=== PATIENT | female | born 1970 | race Caucasian/White ===

== ENCOUNTER 2018-04-17 12:06 | Inpatient (IN) ==
[2018-04-17] MEDS ORDERED: Acetaminophen 325 MG TABLET PO PRN (19:42)
--- NOTE | 2018-04-17 19:52 | OB/GYN History & Physical ---
Date of Encounter: 04/17/18 Time of Encounter: 19:50 Assessment and Plan (1) Menorrhagia with irregular cycle Current visit: Yes Status: Acute (2) Dysmenorrhea Current visit: Yes Status: Acute (3) Enlarged uterus Current visit: Yes Status: Acute (4) Fibroid uterus Current visit: Yes Status: Acute Patient is scheduled for laprascopic assisted vaginal hysterectomy Qualifiers: Uterine leiomyoma location: intramural and subserous Qualified Code(s): D25.1 - Intramural leiomyoma of uterus; D25.2 - Subserosal leiomyoma of uterus (5) Blood loss anemia Current visit: Yes Status: Acute She will receive 2 units of blood prior to surgery History of Present Illness HPI: Ms. Pearl is a 47 year old female who presented for admission for blood transfusion. Patient is scheduled for laparoscopic-assisted vaginal hysterectomy in the morning however at the time of her preadmission testing patient hemoglobin is 7.8 patient has a history of an enlarged fibroid uterus and continued to bleed heavy after that test was drawn. Case was discussed with anesthesia the recommend patient did admitted the night before for 2 units of blood to stabilize for the surgery. Patient was placed on megestrol 40 mg twice a day and it has slowed down the bleeding she does have an severe cramping now associated with that. Patient was originally referred to the office for heavy painful periods and on examination she was noted to have an enlarged uterus. Ultrasound was performed and patient showing a uterus of approximately 9 cm however she had a large 7 cm subserosal fibroid coming off the right side. We did do an endometrial biopsy that was benign she was scheduled for the left scopic assisted vaginal hysterectomy to control her bleeding and pain. Past Med Surg Social Fam HX - Past Medical History Source: patient, old records reviewed Medical history: cancer (skin face) Additional medical history: skin cancer- face Psychiatric history: no psych history - Past Surgical History Surgical History: appendectomy, other (Marco fundopliation) Additional surgical history: marco fundoplication Medications and Allergies Allergy/AdvReac Type Severity Reaction Status Date / Time No Known Allergies Allergy Unverified 04/12/18 08:20 Review of System OB All systems PM: reviewed and no additional remarkable complaints except as stated - Menstruation Menstruation: period heavy Exam - Vital Signs Vital signs: Initial Vital Signs Temp Pulse Resp BP Pulse Ox 98.3 F 104 16 136/83 100 04/17/18 19:05 04/17/18 19:05 04/17/18 19:05 04/17/18 19:05 04/17/18 19:05 - Constitutional Constitutional: well developed, well nourished, average body habitus, mild distress - HEENT HEENT: EOMI, PERRL, Mucus Membranes Moist - Neck Neck exam: full ROM - Lungs Respiratory exam: CTAB - Cardiovascular Cardiovascular exam: RRR - Abdomen Abdomen: Present: bowel sounds normal Results All other labs normal.
[2018-04-17] MEDS ORDERED: 0.9 % Sodium Chloride 500 ML ONE (20:16)
[2018-04-17 20:17] LABS: Basophils # 0.1 K/mcL (0.0-0.2); Basophils % 1.3 %; Eosinophils # 0.2 K/mcL (0.0-0.6); Eosinophils % 3.6 %; Hemoglobin 7.2 g/dL (11.5-15.4); Immature Granulocytes % 0.2 % (0-4); Lymphocytes # 1.5 K/mcL (0.6-4.6); Lymphocytes % 23.3 %; Mean Corpuscular HGB Conc 27.7 g/dL (31.6-35.5); Mean Corpuscular Hemoglobin 17.7 pg (28.0-33.3); Mean Corpuscular Volume 63.9 fL (83.0-100.0); Mean Platelet Volume 9.3 fL (9.4-12.4); Monocytes # 0.8 K/mcL (0.0-1.3); Monocytes % 12.3 %; Platelet Count 453 K/mcL (140-400); Red Blood Count 4.07 M/mcL (3.82-4.97); Red Cell Distribution Width 15.9 % (11.5-14.5); Segmented Neutrophils % 59.3 %
[2018-04-17 20:18] LABS: Neutrophils # 3.7 K/mcL (1.6-8.9)
[2018-04-17 20:44] LABS: Hypochromasia Present (Not Present); Platelet Estimate Increased (Normal)
[2018-04-17] MEDS: Ringers Solution, Lactated 1,000 ML IVC SCH (20:55)
[2018-04-18 09:10] LABS: Basophils # 0.1 K/mcL (0.0-0.2); Basophils % 1.4 %; Eosinophils # 0.3 K/mcL (0.0-0.6); Hematocrit 29.9 % (35.3-44.9); Immature Granulocytes % 0.2 % (0-4); Lymphocytes # 1.4 K/mcL (0.6-4.6); Lymphocytes % 24.2 %; Mean Corpuscular HGB Conc 29.1 g/dL (31.6-35.5); Mean Corpuscular Hemoglobin 19.6 pg (28.0-33.3); Mean Corpuscular Volume 67.5 fL (83.0-100.0); Monocytes # 0.7 K/mcL (0.0-1.3); Monocytes % 12.6 %; Neutrophils # 3.3 K/mcL (1.6-8.9); Platelet Count 392 K/mcL (140-400); Red Blood Count 4.43 M/mcL (3.82-4.97); Red Cell Distribution Width 19.7 % (11.5-14.5); Segmented Neutrophils % 56.6 %
[2018-04-18 09:19] LABS: Hemoglobin 8.7 g/dL (11.5-15.4)
[2018-04-18 09:32] LABS: Anisocytosis 1+ (Not Present); Hypochromasia Present (Not Present); Microcytosis Present (Not Present); Platelet Estimate Normal (Normal)
[2018-04-18] MEDS: Ringers Solution, Lactated 1,000 ML IVC SCH (10:02)
[2018-04-18] MEDS ORDERED: Dexamethasone 4 MG/ML VIAL ONE (11:06)
[2018-04-18] MEDS ORDERED: Lidocaine -MPF 2% 2 ML VIAL ONE (11:06)
[2018-04-18] MEDS ORDERED: Ondansetron 4 MG/2 ML VIAL ONE (11:06)
[2018-04-18] MEDS ORDERED: *HR* Propofol 200 MG/20 ML VIAL IVP ONE (11:06)
--- NOTE | 2018-04-18 11:11 | Anesthesia Evaluation PreOp ---
Date of Encounter: 04/18/18 Time of Encounter: 11:11 - Past History Planned Operation: LAVH re: Anemia, Menorrhagia/Dysmenorrhea Cardiac History: Denies any Significant Hx Pulmonary History: Denies Any Significant HX KNOT BORER History: Denies Any Significant HX Other Medical History: Denies Any Significant HX, Other (Admitted 04/17/2018 for RBC transfusion. S/p 2units on day of surgery 04/18/2018. Hx Skin Ca [face]) Anesthesia History: No Prior Anesthetic Complications, Past Anesthesia (Appy, Kristopher) : No Test: Negative Medications and Allergies Allergy/AdvReac Type Severity Reaction Status Date / Time ampicillin Allergy Hives Verified 04/17/18 21:12 morphine Allergy Anaphylaxis Verified 04/17/18 21:12 - Meds/Allergy Pre-op Review Medications Reviewed: Yes Allergies Reviewed: Yes (MORPHINE => ANAPHYLAXIS) Beta Blockers on Current Med List: No Anesthesia Results - Labs 04/18/18 08:50 Laboratory Results Laboratory Tests 04/12/18 04/18/18 08:35 08:50 WBC 5.8 Hgb 8.7 L D Hct 29.9 L Plt Count 392 Serum , Qual Negative Anesthesia Exam Vital Signs Temp Pulse Resp BP Pulse Ox 04/18/18 07:36 97.5 F L 68 18 108/67 97 04/18/18 02:50 98.6 F 83 18 102/60 97 04/18/18 00:41 98.0 F 92 18 105/63 100 04/18/18 00:25 98.5 F 90 18 118/71 99 04/17/18 23:55 97.7 F 87 16 126/65 100 04/17/18 21:58 98.5 F 89 18 144/83 100 04/17/18 21:30 98.6 F 92 18 149/77 100 04/17/18 19:05 98.3 F 104 16 136/83 100 Intake and Output 04/17/18 04/18/18 04/18/18 23:59 07:59 15:59 Intake Total 1200 / 1200 700 / 700 1000 / 1000 Balance 1200 / 1200 700 / 700 1000 / 1000 Intake: IV Fluids 1000 / 1000 Lactated Ringers 1,000 ML @ 125 1000 / 1000 mls/hr IVC .Q8H [facility] Rx#: [id number] Oral 500 / 500 350 / 350 Blood Product 700 / 700 350 / 350 Rbcs Leuko Poor As-1 Unit 700 / 700 [id number] Rbcs Leuko Poor As-1 Unit 350 / 350 [id number] Other: # Voids 1 1 Weight 81.5 kg Height: 5'7" Weight: 179# bmi = 28 NPO (# of Hours): mnoC - HEENT Pupil (Motor): Pupils equal, EOMI Mallampati: III Teeth: Normal Oral Opening: Greater than 3 - KNOT BORER LOC: Oriented KNOT BORER Motor: Normal RUE, Normal LUE, Normal RLE, Normal LLE, Normal Face KNOT BORER Sensory: Normal: RUE, LUE, RLE, LLE, Face - Cardiac Rhythm: Regular Murmur: None - Pulmonary Breath Sounds: bilateral Clear Respiratory Effort: Symmetrical Anesthesia Assess/Plan ASA Score: 2 Level of consciousness: Cooperative, Oriented, Tranquil Anesthetic Plan: General Monitoring Plan: Standard Monitors Recovery Plan: PACU Anes Supervising Prov Stmt: Pt seen/evaluated, R&B Discussed, questions answered and consent obtained. Raza Maxwell MD
[2018-04-18] MEDS ORDERED: *HR* FentaNYL (PF) 100 MCG/2 ML VIAL ONE ×2 (11:32→12:46)
[2018-04-18] MEDS ORDERED: *HR* Midazolam HCl 2 MG/2 ML VIAL ONE (11:33)
[2018-04-18] MEDS ORDERED: Lidocaine -MPF 4% 5 ML AMPUL ONE (11:34)
[2018-04-18] MEDS ORDERED: MetroNIDAZOLE 500 MG/100 ML 500 MG/100 ML BAG IVPB ONE ×2 (11:36→12:14)
[2018-04-18] MEDS ORDERED: *HR* Belladonna Alkaloids/Opium 30 MG RECTAL SUPPOSITORY RC ONE ×2 (11:45→14:09)
[2018-04-18] MEDS ORDERED: *HR* Oxytocin 10 UNIT/ML VIAL IM ONE (11:46)
[2018-04-18] MEDS ORDERED: Bupivacaine/EPI 1:200k 0.25%PF 10 ML VIAL INFILT ONE (11:46)
[2018-04-18] MEDS ORDERED: Scopolamine Patch 1.5 MG PATCH.TD72 ONE (11:47)
[2018-04-18] MEDS ORDERED: Acetaminophen IV 1,000 MG/100 ML INFUS..BTL ONE (11:47)
[2018-04-18] MEDS ORDERED: Famotidine 20 MG/2 ML VIAL ONE (11:47)
--- NOTE | 2018-04-18 11:47 | History & Physical Report ---
Date of Encounter: 04/18/18 Time of Encounter: 11:46 24 Hour HP Update - Instructions Instructions: If the History and Physical is less than 30 days old and was completed prior to A.M. admission and or procedure and has NOT been updated on calendar day of procedure please complete this update prior to performing procedure. - Update Patient reports changes in Medical Condition: Yes Changes in examination, assessment, or condition: Yes Changes in Medication: No Preop tests/diagnostics Reviewed: Yes Surgery Remains Indicated: Yes Consent for Planned Operative Procedure(s) Verified: Yes Review of Patient reveals the following changes:: Patient's hemoglobin at the time of her preadmission testing was 7.8 she continued to bleed. Patient come in yesterday hemoglobin was 7.2 she was transfused 2 units overnight in preparation for surgery today bleeding was finally stopped with megestrol - Pre-Operative Checklist Preoperative Checklist Indicated: Yes Prophylactic Antibiotic Ordered: Yes Home Medications Include Beta Lindsey: No Beta Lindsey Taken Today (Day of Surgery): No Beta Lindsey Taken Yesterday (Day Prior to Surgery): No Is VTE Prophylaxis Indicated?: Yes
[2018-04-18] MEDS ORDERED: *HR* Vasopressin 20 UNIT/ML VIAL ONE (11:49)
[2018-04-18] MEDS ORDERED: Pregabalin 75 MG CAPSULE ONE (11:51)
[2018-04-18] MEDS ORDERED: Vancomycin 1,000 MG VIAL ONE (12:14)
[2018-04-18] MEDS ORDERED: Neostigmine Methylsulfate 3 MG/3 ML SYRINGE ONE (13:37)
[2018-04-18] MEDS ORDERED: *HR* HYDROMORPHONE 2 MG/ML VIAL ONE (13:42)
--- NOTE | 2018-04-18 14:14 | OB/GYN Procedure Note ---
Hysterectomy - Diagnosis Date of procedure: 04/18/18 Hysterectomy pre-op: other (Menorrhagia, dysmenorrhea, enlarged fibroid uterus, blood loss anemia) Post-op diagnosis: same - Procedure Hysterectomy procedure: lap assisted vaginal hysterectomy, bilateral salpingectomy Surgeon: Edward Yuan Was there an transition assistant present: Yes Presto Log Operator: Ladonna Fink Anesthesia Type: General Estimated blood loss (cc): 200 Complications: none Specimens: uterus, cervix, right fallopian tube, left fallopian tube Findings: Enlarged fibroid uterus that had to be removed in pieces normal ovaries bilaterally Disposition: PACU Narrative: Patient is a 47 year old female who presented for laparoscopic-assisted vaginal hysterectomy secondary to menorrhagia dysmenorrhea with an ultrasound showing a large fibroid uterus. She presents our office complaining of very heavy painful periods passing large clots she had an ultrasound which showed a 9 cm uterus with a 7 cm fundal fibroid with schedule patient for a laparoscopic assisted vaginal hysterectomy at the time of her preoperative blood work she was noted have a hemoglobin of 7.8. She was still actively bleeding we decided to bring her in the night before for transfusion. She was 7.2 on admission after 2 units of blood she went up to 8.7. Patient was advised if her hemoglobin drops down to 7 again we would discuss another transfusion. Procedure: Patient was taken to the operating room where general anesthesia was found be adequate. She was placed in the dorsal lithotomy position prepped and draped in usual fashion. A weighted speculum was placed in the vagina the anterior lip of the cervix was grasped with a single-tooth tenaculum and a uterine manipulator was inserted. Speculum was removed and attention was then turned to the abdomen. A small infraumbilical incision was made with a scalpel and a 5 mm blunt trocar was inserted under direct visualization. A pneumoperitoneum was obtained with 4 L of CO2 gas. Patient was noted to have an enlarged uterus filling the pelvis. 2 more incisions were made in the right and left flank and 2 more 5 mm trochars were inserted under direct visualization. Pelvis was visualized uterus is difficult to manipulate due to the size and weight of the uterus but we were able to visualize the pedicles bilaterally and we decided to proceed on laparoscopically. The round ligaments were then transected with the LigaSure at the anterior leaf of the broad ligament was opened up anteriorly. The fallopian tubes were then removed off the ovaries to the mesosalpinx and the ovary was from the uterus to the utero-ovarian ligament. We skeletonized the broad ligaments identified uterine vessels these were then cauterized and transected worked her way down as low as we could but due to some poor visualization once we had the uterine vessels transected it was decided we would finish the case from below. Attention was then turned back to the vagina speculum was reinserted and the vaginal mucosa was infiltrated with Pitressin a scalpel was used to incise from the cervical stump the vaginal mucosa was dissected off the cervix and into the anterior and posterior repair. 2 curved Claude clamps were placed across the uterosacral cardinal complex these were then transected and suture ligated with 0 Vicryl. It required 2 more bites on each side for the specimen was free and removed these pedicles were also suture ligated with 0 Vicryl we attempted to remove the uterus unfortunately due to the size of it it would not fit out the vagina was decided this time with morcellated out until it would fit using a scalpel and scissors we transected the midsection of the uterus until it. And we could remove the fundal portion. Once this was removed pelvis was visualized good hemostasis noted the vaginal cuff was then closed using an 0 Vicryl in a running locking stitch from both corners to midline incorporating the parietal peritoneum anteriorly and pos teriorly good hemostasis was noted patient did have some lacerations within the vagina from is trying to remove it these were repaired with a 3-0 Vicryl in a running stitch. Hemostasis again was noted attention was then turned back to the abdomen. Pneumoperitoneum was expanded the pelvis was copiously irrigated with no active bleeding noticed was applied to the symphysis and the procedure was terminated the laparoscope was removed, pneumoperitoneum released, all by the removal of the trochars the 3 skin incisions were closed using a 4-0 Vicryl in a subcuticular manner. All needles lap sponge counts were correct 3 she did receive preoperative antibiotics and a B&O suppository at the end of the case. She was taken to the recovery room in stable condition.
--- NOTE | 2018-04-18 14:50 | Anesthesia Evaluation Post Op ---
Date of Encounter: 04/18/18 Time of Encounter: 14:50 - Vital Signs Vital Signs: Vital Signs/O2 Sat, Most Current Temp Pulse Resp BP Pulse Ox 99 F 90 14 122/70 94 04/18/18 14:44 04/18/18 14:44 04/18/18 14:44 04/18/18 14:44 04/18/18 14:44 - Lungs Lungs: Clear Ascult./Percussion - Airway Airway: Non-obstructed - Cardiovascular Regular Rate - Mental Status Mental Status: Asleep with brisk response to light stimulation - Pain Pain Scale: 0 Pain Scale used: Numeric (1 - 10) - Nausea Vomiting Nausea Vomiting: Not Present - Hydration Hydration: NPO, Pedro catheter - Discharge PostOp Status: Transfer Patient to floor
[2018-04-18] MEDS ORDERED: Ondansetron 4 MG/2 ML VIAL IVP PRN (14:59)
[2018-04-18] MEDS ORDERED: Ringers Solution, Lactated 1,000 ML IVC SCH (14:59)
[2018-04-18] MEDS ORDERED: Naloxone 0.4 MG/ML INJ IVP PRN (14:59)
[2018-04-18] MEDS ORDERED: Ketorolac 30 MG/ML VIAL IVP PRN (14:59)
[2018-04-18] MEDS ORDERED: *HR* OxyCODONE/APAP 10/325 TABLET PO PRN (14:59)
--- NOTE | 2018-04-18 15:47 | Discharge Summary ---
Date of Encounter: 04/19/18 Time of Encounter: 07:58 - Discharge Diagnosis (1) Menorrhagia with irregular cycle Priority: Secondary Status: Acute (2) Dysmenorrhea Priority: Secondary Status: Acute (3) Enlarged uterus Priority: Secondary Status: Acute (4) Fibroid uterus Priority: Secondary Status: Acute Qualifiers: Uterine leiomyoma location: intramural and subserous Qualified Code(s): D25.1 - Intramural leiomyoma of uterus; D25.2 - Subserosal leiomyoma of uterus (5) Blood loss anemia Priority: Primary Status: Acute (6) Status post laparoscopic assisted vaginal hysterectomy (LAVH) Priority: Primary Status: Acute - Discharge Medications Prescriptions: OxyCODONE/APAP 5/325 [Percocet 5/325 MG] 1 each PO Q6HR PRN 7 Days #28 tablet PRN Reason: Moderate Pain Ferrous Sulfate 325 mg PO BIDWM #60 tablet Home Medications: Ferrous Sulfate 325 mg PO BIDWM #60 tablet 04/19/18 [Rx] OxyCODONE/APAP 5/325 [Percocet 5/325 MG] 1 each PO Q6HR PRN 7 Days #28 tablet 04/19/18 [Rx] Allergies/Adverse Reactions: Allergy/AdvReac Type Severity Reaction Status Date / Time ampicillin Allergy Hives Verified 04/17/18 21:12 morphine Allergy Anaphylaxis Verified 04/18/18 15:42 Data Procedures and tests throughout hospitalization: Laboratory Tests 04/17/18 04/17/18 04/18/18 19:36 19:42 08:50 WBC 6.3 5.8 RBC 4.07 4.43 Hgb 7.2 L 8.7 L D Hct 26.0 L 29.9 L MCV 63.9 L 67.5 L MCH 17.7 L 19.6 L MCHC 27.7 L 29.1 L RDW 15.9 H 19.7 H Plt Count 453 H 392 MPV 9.3 L 9.0 L Immature Gran % 0.2 0.2 Seg Neutrophils % 59.3 56.6 Lymphocytes % 23.3 24.2 Monocytes % 12.3 12.6 Eosinophils % 3.6 5.0 Basophils % 1.3 1.4 Neutrophils # 3.7 3.3 Lymphocytes # 1.5 1.4 Monocytes # 0.8 0.7 Eosinophils # 0.2 0.3 Basophils # 0.1 0.1 Platelet Estimate Increased H Normal Hypochromasia Present A Present A Anisocytosis 1+ A Microcytosis Present A Blood Type A POSITIVE Antibody Screen NEGATIVE Crossmatch See Detail Labs on day of discharge: Labs from last 24 hours 04/18/18 04/17/18 04/17/18 08:50 19:42 19:36 WBC 5.8 6.3 RBC 4.43 4.07 Hgb 8.7 L D 7.2 L Hct 29.9 L 26.0 L MCV 67.5 L 63.9 L MCH 19.6 L 17.7 L MCHC 29.1 L 27.7 L RDW 19.7 H 15.9 H Plt Count 392 453 H MPV 9.0 L 9.3 L Immature Gran % 0.2 0.2 Seg Neutrophils % 56.6 59.3 Lymphocytes % 24.2 23.3 Monocytes % 12.6 12.3 Eosinophils % 5.0 3.6 Basophils % 1.4 1.3 Neutrophils # 3.3 3.7 Lymphocytes # 1.4 1.5 Monocytes # 0.7 0.8 Eosinophils # 0.3 0.2 Basophils # 0.1 0.1 Platelet Estimate Normal Increased H Hypochromasia Present A Present A Anisocytosis 1+ A Microcytosis Present A Blood Type A POSITIVE Antibody Screen NEGATIVE Crossmatch See Detail Date of admission: 04/17/18 22:48 Primary care physician: PCP YOMAIRA Discharging clinician: Edward Yuan Anticipated date of discharge: 04/19/18 - Patient Status Disposition: Home, Self-Care Condition: Good Functional capacity at discharge: independent ambulation Overall status at discharge: patient is progressing back to baseline - Discharge Instructions Follow Up With: NONE,PCP [Primary Care Provider] - Edward Yuan DO [Partnered Physician] - - Diet and Activity Activity: increase activity as tolerated Diet: advance to your usual diet 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8 and she was brought in the night before for transfusion patient received 2 units of blood and hemoglobin went from 7. to admission to 8.7 patient's bleeding had been controlled eventually with megestrol. Patient underwent a laparoscopic-assisted vaginal hysterectomy bilateral salpingectomy without any complications. Patient did have an enlarged fibroid uterus was a little difficult to get out but we were able to still do it laparoscopically hospital course was unremarkable hemoglobin remained stable at 8.2. Hospital course remained stable that was advanced she was and bleeding urinating and ready to go home by day #1. She will be discharged home with prescription for Percocet 5 mg #28 1 every 6 hours and if her pain for 7 days find sulfate 325 mg 1 twice a day as well. She will follow up in The office in 2 weeks. Patient's condition at time of discharge is stable Time Attestation: Total time spent providing and/or coordinating discharge services: Exam - Constitutional Vitals: Temp Pulse Resp BP Pulse Ox 98.2 F 93 14 128/75 96 04/18/18 15:30 04/18/18 15:30 04/18/18 15:30 04/18/18 15:30 04/18/18 15:30 General appearance IM: mild distress, A&O X 3 - Respiratory Respiratory exam: Present: CTAB - Cardiovascular Cardiovascular exam IM: Present: RRR - GI/Abdominal GI/Abdominal exam IM: normal bowel sounds Incision: normal, dry, intact - VTE Documentation of Mechanical Device: Intermittent pneumatic compression device
[2018-04-18 19:21] LABS: Basophils % 0.1 %; Hematocrit 31.8 % (35.3-44.9); Hemoglobin 9.3 g/dL (11.5-15.4); Immature Granulocytes % 0.4 % (0-4); Lymphocytes # 0.4 K/mcL (0.6-4.6); Lymphocytes % 2.7 %; Mean Corpuscular HGB Conc 29.2 g/dL (31.6-35.5); Mean Corpuscular Hemoglobin 19.6 pg (28.0-33.3); Mean Corpuscular Volume 67.1 fL (83.0-100.0); Mean Platelet Volume 9.4 fL (9.4-12.4); Monocytes # 0.2 K/mcL (0.0-1.3); Monocytes % 1.3 %; Neutrophils # 14.3 K/mcL (1.6-8.9); Platelet Count 428 K/mcL (140-400); Red Blood Count 4.74 M/mcL (3.82-4.97); Red Cell Distribution Width 19.9 % (11.5-14.5); Segmented Neutrophils % 95.5 %
[2018-04-18 19:23] LABS: Microcytosis Present (Not Present)
[2018-04-18] MEDS: *HR* OxyCODONE/APAP 5/325 TABLET PO PRN (20:35)
[2018-04-19] MEDS: *HR* OxyCODONE/APAP 5/325 TABLET PO PRN (05:20)
[2018-04-19 07:16] LABS: Basophils % 0.3 %; Eosinophils % 0.1 %; Hemoglobin 8.3 g/dL (11.5-15.4); Immature Granulocytes % 0.3 % (0-4); Lymphocytes # 1.2 K/mcL (0.6-4.6); Mean Corpuscular HGB Conc 28.6 g/dL (31.6-35.5); Mean Corpuscular Hemoglobin 19.6 pg (28.0-33.3); Mean Corpuscular Volume 68.6 fL (83.0-100.0); Mean Platelet Volume 9.1 fL (9.4-12.4); Monocytes # 1.3 K/mcL (0.0-1.3); Monocytes % 11.1 %; Platelet Count 408 K/mcL (140-400); Red Blood Count 4.23 M/mcL (3.82-4.97); Red Cell Distribution Width 19.9 % (11.5-14.5); Segmented Neutrophils % 78.2 %
[2018-04-19 07:35] LABS: eGFR For Non-African Americans > 60 (> 60)
[2018-04-19 07:46] LABS: Microcytosis Present (Not Present)
[2018-04-19 07:47] LABS: Hypochromasia Present (Not Present)
== END 2018-04-19 11:20 | disposition home or self-care (01) | DRG 743 ==
LOC: 1NENUOBS → 1NENUPED 19:23
PROVIDERS: ADMIT Obstetrics & Gynecology; ATTEND Obstetrics & Gynecology
PROC: GYNLAVH (ICD-10-PCS; 2018-04-18 12:20)